=== PATIENT | male | born 1990 | race Caucasian/White ===

== ENCOUNTER 2017-10-14 22:39 | Emergency (ER) | payer OTHER ==
[~2017-10-14] VITALS: Ht 180.3 cm; Wt 105.5 kg
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
[2017-10-14] MEDS ORDERED: ONDANSETRON ODT 4 MG TAB.RAPDIS ONE (22:48)
[2017-10-14] MEDS: ONDANSETRON ODT 4 MG TAB.RAPDIS PO ONE ×2 (22:54→22:59)
[2017-10-14] MEDS: TETANUS AND DIPHTHERIA TOX/PF 0.5 ML VIAL. VAX IM ONE (22:59)
[2017-10-14] MEDS: BUPIVACAINE MPF 0.5% 30 ML VIAL. SQ ONE (23:00)
[2017-10-14 23:52] LABS: BASO % 0 % (0-3); EOS % 0 % (0-3); HEMATOCRIT 46.7 % (39.0-53.0); HEMOGLOBIN 16.1 g/dL (13.0-17.5); LYMPH # 0.6 x10^3/uL (1.0-4.8); LYMPH % 4 % (24-48); MEAN CORPUSCULAR HEMOGLOBIN 28 pg (25-35); MEAN CORPUSCULAR HGB CONC 35 g/dL (31-37); MEAN CORPUSCULAR VOLUME 82 fL (79-100); MONO # 1.1 x10^3/uL (0.0-1.1); MONO % 7 % (0-9); NEUT # 13.3 x10^3uL (1.8-7.7); NEUT % 88 % (31-73); PLATELET COUNT 281 x10^3/uL (140-400); RED BLOOD COUNT 5.69 x10^6/uL (4.30-5.70); RED CELL DISTRIBUTION WIDTH 13.6 % (11.5-14.5)
[2017-10-15] LABS: BACTERIA,URINE 0 /HPF (0-FEW); BARBITURATES NEG (NEG); BENZODIAZEPINES NEG (NEG); BILIRUBIN,URINE NEG (NEG); CANNABINOIDS NEG (NEG); CLARITY,URINE CLEAR; COCAINE NEG (NEG); COLOR,URINE YELLOW; GLUCOSE,URINE NEG (NEG); METHADONE NEG (NEG); NITRITE,URINE NEG (NEG); OPIATES NEG (NEG); PHENCYCLIDINE NEG (NEG); RBC,URINE 0 /HPF (0-2); SQUAMOUS EPITHELIAL CELL,UR OCC /LPF; UROBILINOGEN,URINE 0.2 mg/dL (0.2 mg/dL); WBC,URINE OCC /HPF (0-4)
[2017-10-15 00:02] LABS: AMPHETAMINE/METHAMPHETAMINE NEG (NEG)
[2017-10-15] MEDS: LIDOCAINE 2% 20 ML VIAL. IJ ONE (00:02)
[2017-10-15 00:03] LABS: ALBUMIN 4.3 g/dL (3.4-5.0); DIRECT BILIRUBIN 0.1 mg/dL (0.0-0.2); GFR 89.6; POTASSIUM 3.8 mmol/L (3.5-5.1); TOTAL BILIRUBIN 0.4 mg/dL (0.2-1.0); TOTAL PROTEIN 7.8 g/dL (6.4-8.2)
[2017-10-15 00:19] LABS: % BANDS 5 % (0-9); % LYMPHS 3 % (24-48); % MONOS 8 % (0-10); % SEGS 84 % (35-66); PLT ESTIMATE ADEQUATE (ADEQUATE)
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
[2017-10-15] MEDS: ACETAMINOPHEN 500 MG TABLET PO ONE (03:06)
[2017-10-15] MEDS: cefTRIAXone IV Push 1 GM VIAL. IVP ONE (03:07)
[2017-10-15 03:43] VITALS: BP 147/80
== END 2017-10-15 04:18 | disposition short-term general hospital (02) ==
LOC: EEVIPCON 22:39 → ER 22:39
DX: S06.300A Unspecified focal traumatic brain injury without loss of consciousness, initial encounter (principal); S02.32XA Fracture of orbital floor, left side, initial encounter for closed fracture; S01.112A Laceration without foreign body of left eyelid and periocular area, initial encounter; M54.2 Cervicalgia; F17.210 Nicotine dependence, cigarettes, uncomplicated; Y08.89XA Assault by other specified means, initial encounter; Y93.89 Activity, other specified; Y99.8 Other external cause status; Y92.89 Other specified places as the place of occurrence of the external cause
CPT/HCPCS: 12013; 36415; 70450; 70486; 71045; 72125; 80048; 80076; 80307; 81001; 85007; 85025; 85610; 85730; 90471; 90714; 96374; 96375; 99285; J0696; J3010; J3490; Q0162; G0479; J2001